=== PATIENT | female | born 1955 | race Hispanic/Latino ===

== ENCOUNTER → 2021-07-11 | Day surgery (SDC) | payer MEDICARE, OTHER ==
[~2021-07-11] MED LIST: ACETAMINOPHEN-1 EAC4 PO; BUPIVACAINE HCL 0.5% INJ 30 ML VIAL INJ ONE; CYMBALTA30 MG PO; DEXAMETHASONE SOD PHOS INJ 4 MG/ML SDV ONE; FENTANYL CITRATE/PF 100MCG/2 ML INJ ONE; LIDOCAINE HCL 2% LOCAL INJ 5 ML SDV VIAL INJ ONE; MIDAZOLAM HCL 2 MG/2 ML VIAL ONE; MUPIROCIN 2% OINT 22 GM TUBE ONE; NAPROXEN250 MG PO; ONDANSETRON HCL INJ 2MG/ML 2ML 2 MG/ML VIAL ONE; POVIDONE IODINE 0.05% 0.05 % ML PO ONE; PROPOFOL IV EMULSION 10 MG/ML 20 ML VIAL ONE; SEVOFLURANE INHAL SOLN 250 ML PEN BTL ONE; SODIUM CHLORIDE 0.9% 50ML 50 ML ONE
[2021-07-11 08:15] VITALS: BP 124/74
== END | disposition home or self-care (01) ==
LOC: OR 05:51
PROVIDERS: ATTEND Plastic Surgery
DX: G56.01 Carpal tunnel syndrome, right upper limb (principal); M65.831 Other synovitis and tenosynovitis, right forearm; R06.83 Snoring; Z01.810 Encounter for preprocedural cardiovascular examination; Z01.812 Encounter for preprocedural laboratory examination; Z20.822 Contact with and (suspected) exposure to COVID-19; Z68.35 Body mass index [BMI] 35.0-35.9, adult
CPT/HCPCS: 25115; 93005; J0690; J1100; J2001; J2250; J2405; J2704; J3010; U0002